=== PATIENT | male | born 1950 | race Caucasian/White ===

== ENCOUNTER 2017-07-27 07:18 | Emergency (ER) | payer OTHER ==
[2017-07-27 07:35] VITALS: RESP 20
[2017-07-27] MEDS ORDERED: Lidocaine 1% Inj (20ml) INFIL STA (07:41)
--- NOTE | 2017-07-27 07:46 | C.PDOC ---
History Of Present Illness 67 y/o male presents to ED for evaluation of laceration sustained with box cuter while at work. Patient is a [employer] employee and states he cut himself 2 lacerations to anterior surface of left hand. Patient denies change in sensation, fever, chills or any other complaints at this time. Tetanus Vaccine not UTD Time Seen by Provider: 07/27/17 07:31 Chief Complaint (Nursing): Abnormal Skin Integrity History Per: Patient History/Exam Limitations: no limitations Onset/Duration Of Symptoms: Hrs Current Symptoms Are (Timing): Still Present Location Of Injury: Left: Hand Quality Of Symptoms: Painful Past Medical History Reviewed: Historical Data, Nursing Documentation, Vital Signs Vital Signs: Last Vital Signs Temp 98.1 F 07/27/17 07:31 Pulse 100 H 07/27/17 07:31 Resp 20 07/27/17 07:31 BP 164/106 H 07/27/17 07:31 Pulse Ox 98 07/27/17 08:02 - Medical History PMH: No Chronic Diseases Surgical History: No Surg Hx Family History: States: No Known Family Hx - Social History Hx Alcohol Use: Yes Hx Substance Use: No - Immunization History Hx Tetanus Toxoid Vaccination: No Hx Influenza Vaccination: No Hx Pneumococcal Vaccination: No Review Of Systems Musculoskeletal: Positive for: Hand Pain Skin: Negative for: Rash Neurological: Negative for: Weakness, Numbness Physical Exam - Physical Exam Appears: Non-toxic, No Acute Distress Skin: Warm, Dry, No Rash, Other (1.5cm and .5cm lacerations to anterior surface of left hand ) Head: Atraumatic, Normacephalic Eye(s): bilateral: Normal Inspection Oral Mucosa: Moist Neck: Supple Extremity: Capillary Refill (<2 seconds), No Deformity Extremity: Bilateral: Normal ROM Pulses: Left Radial: Normal, Right Radial: Normal Neurological/Psych: Oriented x3, Normal Motor, Normal Sensation ED Course And Treatment O2 Sat by Pulse Oximetry: 98 (RA) Pulse Ox Interpretation: Normal Laceration - Laceration Repair left hand Wound Length (In cm): 1.5 and .5 Description Of Wound: Linear Wound Cleansed With: Betadine, Sterile Saline Anesthesia: Lidocaine 2% Wound Examination: No FB With Wound Exploration, No Tendon Injury With Wound Exploration Wound Closure: Suture (3 to 1.5cm lac and 1 to .5cm lac) Suture Technique And Material Used: Nylon (6-O) Disposition - Disposition Disposition: HOME/ ROUTINE Disposition Time: 08:05 Condition: STABLE Additional Instructions: follow up with your doctor or er for removal in 14 days. return immediately with any worsening symptoms or concerns. Instructions: Care For Your Stitches (ED), Laceration (ED) Forms: [employer] (Chadian) - Clinical Impression Clinical Impression: Laceration - Scribe Statement The provider has reviewed the documentation as recorded by the Kyleibdel Jerome All medical record entries made by the Janiya were at my direction and personally dictated by me. I have reviewed the chart and agree that the record accurately reflects my personal performance of the history, physical exam, medical decision making, and the department course for this patient. I have also personally directed, reviewed, and agree with the discharge instructions and disposition.
[2017-07-27] MEDS ORDERED: Lidocaine 1% Inj (20ml) ONE (07:49)
[2017-07-27] MEDS ORDERED: Bacitracin 500 Units/gm Oint Foilpak UD ONE (08:09)
[2017-07-27 08:18] VITALS: BP 167/98; PULSE 96; TEMP 98.7; O2SAT 97
== END 2017-07-27 08:18 | disposition home or self-care (01) ==
LOC: C.ER 07:18
DX: S61.412A Laceration without foreign body of left hand, initial encounter (principal); W45.8XXA Other foreign body or object entering through skin, initial encounter; Y92.239 Unspecified place in hospital as the place of occurrence of the external cause; Y99.0 Civilian activity done for income or pay; Z23 Encounter for immunization

== ENCOUNTER 2017-08-10 06:45 | Emergency (ER) | payer OTHER ==
[2017-08-10 06:53] VITALS: BP 135/81; PULSE 100; RESP 20; TEMP 97.4; O2SAT 99
--- NOTE | 2017-08-10 07:42 | C.PDOC ---
History Of Present Illness 67 y/o male presents to ED for suture removal of laceration sustained 2 weeks ago with box cuter while at work. Patient is a [employer] employee and was seen at ED for laceration repair on 07/27/17. Patient denies any new injuries or any other complaints at this time. Time Seen by Provider: 08/10/17 07:26 Chief Complaint (Nursing): Wound Check History Per: Patient History/Exam Limitations: no limitations Onset/Duration Of Symptoms: Days Ago Current Symptoms Are (Timing): Better Location Of Injury: Left: Hand Past Medical History Reviewed: Historical Data, Nursing Documentation, Vital Signs Vital Signs: Last Vital Signs Temp 97.4 F L 08/10/17 06:50 Pulse 100 H 08/10/17 06:50 Resp 20 08/10/17 06:50 BP 135/81 08/10/17 06:50 Pulse Ox 99 08/10/17 07:47 - Medical History PMH: No Chronic Diseases Surgical History: No Surg Hx Family History: States: No Known Family Hx - Social History Hx Alcohol Use: Yes Hx Substance Use: No - Immunization History Hx Tetanus Toxoid Vaccination: No Hx Influenza Vaccination: No Hx Pneumococcal Vaccination: No Review Of Systems Constitutional: Negative for: Fever, Chills Gastrointestinal: Negative for: Nausea, Vomiting Musculoskeletal: Negative for: Hand Pain Skin: Negative for: Rash Neurological: Negative for: Weakness, Numbness Physical Exam - Physical Exam Appears: Non-toxic, No Acute Distress Skin: Warm, Dry, No Rash, Other (well healed Laceration to left hand - 4 sutures intact) Head: Atraumatic, Normacephalic Eye(s): bilateral: Normal Inspection Oral Mucosa: Moist Neck: Normal ROM, Supple Chest: Symmetrical Extremity: Capillary Refill (<2 seconds), No Deformity, No Swelling Extremity: Bilateral: Normal ROM Pulses: Left Radial: Normal, Right Radial: Normal Neurological/Psych: Oriented x3, Normal Motor, Normal Sensation ED Course And Treatment O2 Sat by Pulse Oximetry: 99 (RA) Pulse Ox Interpretation: Normal Medical Decision Making Medical Decision Making: Plan: 4 sutures removed from left palm, Wound healed with no complications Disposition Counseled Patient/Family Regarding: Diagnosis - Disposition Referrals: [facility] [Outside] [facility] [email or web address] 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 - Scribe Statement The provider has reviewed the documentation as recorded by the Scribdel Jerome All medical record entries made by the Kyleibdel were at my direction and personally dictated by me. I have reviewed the chart and agree that the record accurately reflects my personal performance of the history, physical exam, medical decision making, and the department course for this patient. I have also personally directed, reviewed, and agree with the discharge instructions and disposition.
== END 2017-08-10 07:45 | disposition home or self-care (01) ==
LOC: C.ER 06:45
DX: Z48.02 Encounter for removal of sutures (principal)

== ENCOUNTER 2018-11-20 09:33 | Emergency (ER) | payer OTHER ==
[2018-11-20 09:42] VITALS: BP 164/83; PULSE 93; RESP 18; TEMP 97; O2SAT 99
--- NOTE | 2018-11-20 10:09 | C.PDOC ---
History Of Present Illness 68 y/o male, [employer] employee, presents to the ER for evaluation of right neck injury which occurred in the morning. Patient states that a door fixture struck him on the right side of the head when he was working. Denies having head injury, LOC, headache, dizziness, and visual changes. - HPI Time Seen by Provider: 11/20/18 10:06 Chief Complaint (Nursing): Trauma History Per: Patient History/Exam Limitations: no limitations Onset/Duration Of Symptoms: Days Severity: Moderate Past Medical History Reviewed: Historical Data, Nursing Documentation, Vital Signs Vital Signs: Last Vital Signs Temp 97 F L 11/20/18 09:41 Pulse 93 H 11/20/18 09:41 Resp 18 11/20/18 09:41 BP 164/83 H 11/20/18 09:41 Pulse Ox 99 11/20/18 09:41 - Medical History PMH: HTN Surgical History: No Surg Hx Family History: States: No Known Family Hx - Social History Hx Alcohol Use: Yes Hx Substance Use: No - Immunization History Hx Tetanus Toxoid Vaccination: No Hx Influenza Vaccination: Yes Hx Pneumococcal Vaccination: No Review Of Systems Except As Marked, All Systems Reviewed And Found Negative. Constitutional: Negative for: Fever, Chills Musculoskeletal: Positive for: Neck Pain Neurological: Negative for: Headache, Dizziness Physical Exam - Physical Exam Appears: Non-toxic, No Acute Distress Skin: Warm, Dry Head: Normacephalic, No Abrasion, No Laceration, Other (minor contusion to right mastoid process) Eye(s): bilateral: Normal Inspection, PERRL, EOMI Nose: Normal Oral Mucosa: Moist Neck: Supple Chest: Symmetrical Neurological/Psych: Oriented x3, Normal Speech, Normal Motor, Normal Sensation ED Course And Treatment O2 Sat by Pulse Oximetry: 99 (RA) Pulse Ox Interpretation: Normal Medical Decision Making Medical Decision Making: scalp contusion, R mastoid process area no brain injury defer head CT w informed consent ice/NSAIDS Disposition Doctor Will See Patient In The: Office Counseled Patient/Family Regarding: Studies Performed, Diagnosis - Disposition Referrals: Timothy Vang MD [Staff Provider] - Disposition: HOME/ ROUTINE Disposition Time: 10:09 Condition: GOOD Additional Instructions: ice packs 1/2 hour per hour, nothing hot Advil/motrin 400-600 mg every 6 hours as needed opt f/u as needed. Instructions: Minor Head Injury Forms: [employer] (Sami) - Clinical Impression Clinical Impression: Contusion of head - Scribe Statement The provider has reviewed the documentation as recorded by the Scribe Gabo Colmenares Provider Attestation: All medical record entries made by the Scribe were at my direction and personally dictated by me. I have reviewed the chart and agree that the record accurately reflects my personal performance of the history, physical exam, medical decision making, and the department course for this patient. I have also personally directed, reviewed, and agree with the discharge instructions and disposition.
== END 2018-11-20 10:24 | disposition home or self-care (01) ==
LOC: C.ER 09:33
DX: S00.93XA Contusion of unspecified part of head, initial encounter (principal); W22.8XXA Striking against or struck by other objects, initial encounter; I10 Essential (primary) hypertension

== ENCOUNTER 2018-11-21 09:42 | Emergency (ER) | payer OTHER, MEDICARE ==
[2018-11-21 09:56] VITALS: BMI 21.9
--- NOTE | 2018-11-21 10:58 | C.PDOC ---
History Of Present Illness 68-year-old male presents to the ED for evaluation of posterior headache that radiates anteriorly which began yesterday. Patient states that he was at work when he accidentally sustained an injury to his head - a large metal hinge from a door fell onto his door. He states he was evaluated in the ED yesterday, and was told he did not need a CT head. Patient denies LOC, visual changes, use of blood thinners, nausea/vomiting. Patient states symptoms are worse and is requesting a CT scan of the head. Time Seen by Provider: 11/21/18 10:14 Chief Complaint (Nursing): Headache History Per: Patient History/Exam Limitations: no limitations Onset/Duration Of Symptoms: Hrs Current Symptoms Are (Timing): Still Present Severity: Mild Quality: "Pain" Associated Symptoms: denies: Photophobia, Blurred Vision, Nausea, Vomiting Past Medical History Reviewed: Historical Data, Nursing Documentation, Vital Signs Vital Signs: Last Vital Signs Temp 98.2 F 11/21/18 09:57 Pulse 82 11/21/18 09:57 Resp 17 11/21/18 09:57 BP 160/91 H 11/21/18 09:57 Pulse Ox 98 11/21/18 09:57 - Medical History PMH: HTN Surgical History: No Surg Hx Family History: States: No Known Family Hx - Social History Hx Alcohol Use: Yes Hx Substance Use: No - Immunization History Hx Tetanus Toxoid Vaccination: No Hx Influenza Vaccination: Yes Hx Pneumococcal Vaccination: No Review Of Systems Eyes: Negative for: Vision Change Musculoskeletal: Negative for: Neck Pain Skin: Negative for: Rash Neurological: Positive for: Headache, Dizziness. Negative for: Weakness, Numbness, Incoordination, Change in Speech, Confusion, Seizures, Altered Mental Status Physical Exam - Physical Exam Appears: Well, Non-toxic, No Acute Distress Skin: Normal Color, Warm, Dry Head: Normacephalic, No Abrasion, No Laceration, Other (mild occipital contusion ) Eye(s): bilateral: Normal Inspection ((-) [place] eyes ), PERRL, EOMI, Other (no periorbital swelling or tenderness ) Oral Mucosa: Moist Neck: Normal ROM, No Midline Cervical Tenderness, No Paracervical Tenderness, No Step Off Deformity, Supple Cardiovascular: Rhythm Regular Respiratory: Normal Breath Sounds, No Rales, No Rhonchi, No Wheezing Extremity: Normal ROM Neurological/Psych: Oriented x3, Normal Speech, Normal Cognition, Normal Cranial Nerves, No Cerebellar Signs, Normal Motor, Normal Sensation Gait: Steady ED Course And Treatment O2 Sat by Pulse Oximetry: 98 (on RA) Pulse Ox Interpretation: Normal - CT Scan/US CT Head Other Rad Studies (CT/US): Read By Radiologist, Radiology Report Reviewed CT/US Interpretation: PROCEDURE: CT HEAD WITHOUT CONTRAST. HISTORY: HEAD INJURY, Persistent HEADACHE AND DIZZINESS. COMPARISON: None available. TECHNIQUE: Axial computed tomography images were obtained through the head/brain without intravenous contrast. Radiation dose: Total exam DLP = 911.39 mGy-cm. This CT exam was performed using one or more of the following dose reduction techniques: Automated exposure control, adjustment of the mA a nd/or kV according to patient size, and/or use of iterative reconstruction technique. FINDINGS: HEMORRHAGE: No intracranial hemorrhage. BRAIN: No mass effect or edema. The mclean-white matter differentiation appears intact. Please note that MRI with diffusion imaging is more sensitive in the detection of acute ischemic event. VENTRICLES: No hydrocephalus. CALVARIUM: Unremarkable. PARANASAL SINUSES: Mucosal thickening of the ethmoid air cells. MASTOID AIR CELLS: Unremarkable as visualized. No inflammatory changes. OTHER FINDINGS: None. IMPRESSION: No acute intracranial pathology identified. Progress Note: Explained to patient that CT scan is not needed at this time, however patient insistent he wants CT scan done. PO tylenol given, CT head ordered. Reevaluation Time: 12:20 Reassessment Condition: Improved (On reassessment, patient is resting comfortably and is no pain/distress. CT head neg for acute findings. Patient instructed to follow up with PMD in 1-2 days , and he understands he should return to ED if symptoms worsen.) Disposition Counseled Patient/Family Regarding: Studies Performed, Diagnosis, Need For Followup - Disposition Referrals: Timothy Vang MD [Staff Provider] - Disposition: HOME/ ROUTINE Disposition Time: 12:20 Condition: STABLE Additional Instructions: FOLLOW UP WITH YOUR DOCTOR IN 1-2 DAYS USE IBUPROFEN OR TYLENOL NEEDED FOR HEADACHE RETURN TO ER IF SYMPTOMS WORSEN Instructions: Closed Head Injury (DC) Forms: [employer] (Salvadorean), Work Excuse Print Language: ITALIAN - Clinical Impression Clinical Impression: Closed head injury - 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 - Scribe Statement The provider has reviewed the documentation as recorded by the Scribe (Mira Menard) Provider Attestation: All medical record entries made by the Scribe were at my direction and personally dictated by me. I have reviewed the chart and agree that the record accurately reflects my personal performance of the history, physical exam, medical decision making, and the department course for this patient. I have also personally directed, reviewed, and agree with the discharge instructions and disposition.
--- NOTE | 2018-11-21 11:27 | CT ---
Date of service: 11/21/2018 PROCEDURE: CT HEAD WITHOUT CONTRAST. HISTORY: HEAD INJURY, Persistent HEADACHE AND DIZZINESS COMPARISON: None available. TECHNIQUE: Axial computed tomography images were obtained through the head/brain without intravenous contrast. Radiation dose: Total exam DLP = 911.39 mGy-cm. This CT exam was performed using one or more of the following dose reduction techniques: Automated exposure control, adjustment of the mA and/or kV according to patient size, and/or use of iterative reconstruction technique. FINDINGS: HEMORRHAGE: No intracranial hemorrhage. BRAIN: No mass effect or edema. The mclean-white matter differentiation appears intact. Please note that MRI with diffusion imaging is more sensitive in the detection of acute ischemic event. VENTRICLES: No hydrocephalus. CALVARIUM: Unremarkable. PARANASAL SINUSES: Mucosal thickening of the ethmoid air cells. MASTOID AIR CELLS: Unremarkable as visualized. No inflammatory changes. OTHER FINDINGS: None. IMPRESSION: No acute intracranial pathology identified.
[2018-11-21 13:03] VITALS: BP 180/90; PULSE 68; RESP 18; TEMP 97.5
[2018-11-22 00:56] VITALS: O2SAT 98
== END 2018-11-21 12:30 | disposition home or self-care (01) ==
LOC: C.ER 09:42
DX: S09.90XA Unspecified injury of head, initial encounter (principal); W22.8XXA Striking against or struck by other objects, initial encounter; Y99.0 Civilian activity done for income or pay; I10 Essential (primary) hypertension